=== PATIENT | female | born 1975 | race Caucasian/White ===

== ENCOUNTER 2018-01-15 14:20 | Emergency (ER) | payer MEDICAID, MEDICARE ==
[2018-01-15 14:20] VITALS: BMI 41.1
[2018-01-15 14:50] VITALS: BP 147/80; PULSE 92; RESP 20; TEMP 98.7; O2SAT 99
--- NOTE | 2018-01-15 16:26 | C.PDOC ---
History Of Present Illness 42 y/o female presents to the ED complaining of right foot pain for 4 days. No known mechanism of injury or blunt trauma. No other joint pain. Denies any numbness, tingling, or focal weakness. Time Seen by Provider: 01/15/18 14:43 Chief Complaint (Nursing): Lower Extremity Problem/Injury History Per: Patient History/Exam Limitations: no limitations Onset/Duration Of Symptoms: Days (x4) Current Symptoms Are (Timing): Still Present Past Medical History Reviewed: Historical Data, Nursing Documentation, Vital Signs Vital Signs: Last Vital Signs Temp 98.7 F 01/15/18 14:46 Pulse 92 H 01/15/18 14:46 Resp 20 01/15/18 14:46 BP 147/80 01/15/18 14:46 Pulse Ox 99 01/15/18 16:35 - Medical History PMH: Anxiety, Asthma, Back Problems, Bipolar Disorder, Depression, HTN, Schizophrenia Denies: Alzheimer's Disease, Anemia, Arthritis, Atrial Fibrillation, Bronchitis, Cardia Arrhythmia, CHF, COPD, Dementia, Diabetes, Emphysema, Fractures, Hepatitis, HIV, Hypercholesterolemia, Hyperthyroidism, Hypothyroidism , Kidney Stones, Migraine, Mitral Valve Prolapse, Multiple Sclerosis, Parkinson' s Disease, Peripheral Edema, Pneumonia, Pulmonary Embolism, Chronic Kidney Disease, Seizures, Sickle Cell Disease, Sexually Transmitted Disease, Sleep Apnea Surgical History: Denies: Pacemaker Other Surgeries: Surgery for ectopic - [facility] INJECT/INFUSE NEC (07/03/13) Family History: States: Unknown Family Hx - Social History Hx Tobacco Use: Yes Hx Alcohol Use: No Hx Substance Use: No - Immunization History Hx Tetanus Toxoid Vaccination: Yes Hx Influenza Vaccination: Yes Hx Pneumococcal Vaccination: Yes Review Of Systems Except As Marked, All Systems Reviewed And Found Negative. Musculoskeletal: Positive for: Foot Pain (right) Neurological: Negative for: Weakness, Numbness (and tingling) Physical Exam - Physical Exam Appears: Non-toxic, No Acute Distress Skin: Normal Color, Warm, Dry Extremity: Tenderness (to the right mid-foot), Capillary Refill (is normal ), No Swelling (or cellulitic component), Other (Neurovascularly intact) Pulses: Left Dorsalis Pedis: Normal, Right Dorsalis Pedis: Normal Neurological/Psych: Oriented x3, Normal Speech, Normal Motor, Normal Sensation, No Other (focal deficits) ED Course And Treatment O2 Sat by Pulse Oximetry: 99 (RA) Pulse Ox Interpretation: Normal - Other Rad x-ray right foot X-Ray: Interpreted by Me, Viewed By Me Interpretation: No fracture, no dislocation Medical Decision Making Medical Decision Making: Impression: Foot pain Time: 15:18 Initial Plan: --Motrin 600 mg PO --Urine --X-ray of right foot --Reevaluation X-Ray preliminary reading shows no fracture, no dislocation Patient will be discharged home. Advised to follow up in the podiatry clinic, phone number provided. Disposition Counseled Patient/Family Regarding: Studies Performed, Diagnosis, Need For Followup, Rx Given - Disposition Referrals: [facility] [Outside] Disposition: HOME/ ROUTINE Disposition Time: 16:24 Condition: STABLE Additional Instructions: follow up with podiatry clinic in 2 days call to make an appointment take pain medication as prescribed return to ER if symptoms worsens or progress ask to make an appointment with Dr. Reece, mystery shopper Prescriptions: Naproxen [Naprosyn] 500 mg PO BID PRN #16 tab PRN Reason: Pain, Moderate (4-7) Instructions: Metatarsalgia Forms: [facility] ([place]), General Discharge Instructions - POA Present On Arrival: None - Clinical Impression Clinical Impression: Foot pain - Scribe Statement The provider has reviewed the documentation as recorded by the Scribe (Abiola Alonso) Provider Attestation: All medical record entries made by the Scribe were at my direction and personally dictated by me. I have reviewed the chart and agree that the record accurately reflects my personal performance of the history, physical exam, medical decision making, and the department course for this patient. I have also personally directed, reviewed, and agree with the discharge instructions and disposition.
--- NOTE | 2018-01-15 16:43 | RAD ---
PROCEDURE: Right Foot Radiographs. HISTORY: pain COMPARISON: None. FINDINGS: BONES: No fracture medial sesamoid -bipartite developmental variant JOINTS: 1st metatarsal phalangeal joint space narrowing - minimal osteoarthrosis. SOFT TISSUES: Normal. OTHER FINDINGS: Achilles tendon insertional enthesophyte noted. IMPRESSION: No fracture or lytic lesion. Minimal 1st metatarsal joint space narrowing - minimal osteoarthrosis
== END 2018-01-15 17:07 | disposition home or self-care (01) ==
LOC: C.ER 14:20
DX: M79.671 Pain in right foot (principal)